=== PATIENT | female | born 1995 | race Caucasian/White ===

== ENCOUNTER 2019-10-03 19:32 | Inpatient (IN) | payer OTHER ==
[~2019-10-03] VITALS: Ht 162.6 cm; Wt 99.8 kg
[2019-10-03] MEDS ORDERED: LACTATED RINGERS 1,000 ML IV SCH (19:52)
[2019-10-03] MEDS ORDERED: PREN-380 PO (19:52)
[2019-10-03] MEDS ORDERED: METHYLERGONOVINE 0.2 MG/ML AMP IM PRN (19:55)
[2019-10-03] MEDS ORDERED: CARBOPROST 250 MCG/ML AMP IM PRN (19:55)
[2019-10-03] MEDS ORDERED: PROMETHAZINE 25 MG/ML VIAL IVP PRN (19:55)
[2019-10-03 20:11] VITALS: BP 138/90
[2019-10-03] MEDS ORDERED: ACETAMINOPHEN 325 MG TAB PO PRN (20:40)
[2019-10-03 21:05] LABS: BASOPHILS # (AUTO) 0.1 K/uL (0.00-0.22); BASOPHILS % (AUTO) 0.8 % (0.0-2.0); EOSINOPHILS # (AUTO) 0.2 K/uL (0-0.4); EOSINOPHILS % (AUTO) 2.4 % (0.0-4.0); HEMOGLOBIN 11.6 g/dL (12.0-16.0); LYMPHOCYTES # (AUTO) 2.7 K/uL (2.5-16.5); LYMPHOCYTES % (AUTO) 26.7 % (20.5-51.1); MEAN CORPUSCULAR HEMOGLOBIN 28 pg (27-31); MEAN CORPUSCULAR HGB CONC 33 g/dL (33-37); MEAN CORPUSCULAR VOLUME 84.5 fL (80-94); MONOCYTES % (AUTO) 9.8 % (1.7-9.3); NEUTROPHILS # (AUTO) 6.2 K/uL (1.8-7.7); NEUTROPHILS % (AUTO) 60.3 % (42.2-75.2); PLATELET COUNT (AUTO) 245 K/uL (140-450); RED BLOOD CELL COUNT(AUTO) 4.15 MIL/uL (4.20-5.40); RED CELL DISTRIBUTION WIDTH 14.3 % (11.6-13.7); WHITE BLOOD COUNT (AUTO) 10.2 K/uL (4.8-10.8)
[2019-10-03] MEDS ORDERED: OXYTOCIN 20 UNITS/LR PREMIX 1,000 ML IV ONE (21:28)
[2019-10-03 22:07] LABS: PROTHROMBIN TIME 9.7 secs (10.8-13.4)
[2019-10-04 00:19] LABS: URINE TOTAL PROTEIN 34.2 mg/dL (0-12)
[2019-10-04 05:21] LABS: MAGNESIUM 1.7 mg/dL (1.8-2.4)
[2019-10-04 08:35] LABS: URIC ACID 4.3 mg/dL (2.6-7.2)
== END 2019-10-04 05:05 | disposition home or self-care (01) | DRG 566 ==
LOC: MFCC 19:32
PROVIDERS: ADMIT Obstetrics & Gynecology; ATTEND Obstetrics & Gynecology
DX: O13.3 Gestational [pregnancy-induced] hypertension without significant proteinuria, third trimester (principal); Z3A.36 36 weeks gestation of pregnancy
CPT/HCPCS: 36415; 82570; 83735; 84550; 85025; 85379; 85384; 85610; 85730; 86592; 86886; 86900; 86901; J2590